=== PATIENT | male | born 1995 | race Caucasian/White ===

== ENCOUNTER 2020-02-04 07:44 | Emergency (ER) | payer MEDICAID, SELFPAY ==
[2020-02-04 07:46] VITALS: BP 139/91; PULSE 108; RESP 15; TEMP 36.6; O2SAT 95; BMI 24.2
--- NOTE | 2020-02-04 07:53 | HMH.EDGENADL ---
ED Disposition Clinical Impression: Polysubstance abuse Drug overdose Qualifiers: Encounter type: initial encounter Injury intent: accidental or unintentional Qualified Code(s): T50.901A - Poisoning by unspecified drugs, medicaments and biological substances, accidental (unintentional), initial encounter Disposition: Home, Self-Care Condition on Discharge: Good Instructions: DI for Drug Overdose in Adults Additional Instructions: You were seen on an emergency basis. It is very important that you follow up with your primary care provider and/or specialist as we discussed within 2 days. All labs and imaging were obtained and interpreted here to rule out life threatening emergencies, but your final results should be reviewed by your primary doctor at your follow up appointment. Please return to the emergency department if any of your symptoms worsen, or if they do not improve as we discussed. Referrals: PCP,No [Primary Care Provider] - - Critical Care Critical Care Time: No Attestation: On , the high probability of a clinically significant, sudden or life threatening deterioration of the following system(s) required my full and direct attention, intervention and personal management. The time I documented below is in addition to time spent performing reported procedures but includes the following listed in this critical care notation. Medical Decision Making - Medical Records Medical records reviewed: Yes: I reviewed the patient's medical records. - Tommie Inquiry Pt receiving controlled substance: No Vital Signs: 02/04/20 07:46 02/04/20 08:28 Temperature 97.9 F Temperature Source Oral Pulse Rate [Right Radial] 108 H 107 H Respiratory Rate 15 Blood Pressure [Right Arm] 139/91 H 137/92 H Blood Pressure Mean [Right Arm] 107 107 Blood Pressure Source [Right Arm] Automatic Cuff Blood Pressure Position [Right Arm] Sitting Supine 02 Sat by Pulse Oximetry 95 96 Oxygen Delivery Method Room Air Room Air - Lab Data Lab results reviewed: Yes: I reviewed the patient's lab results. Orders (Tests/Meds): ED MEDICATIONS Discontinued Medications Generic Name Dose Route Start Last Admin Trade Name Freq PRN Reason Stop Dose Admin Sodium Chloride 1,000 mls @ 999 mls/hr 02/04/20 07:58 02/04/20 08:09 Sod Chlor 0.9% 1000ml Bag IV 02/04/20 08:58 999 mls/hr .Q1H1M ONE Administration Medical Decision Narrative: 24-year-old male presenting after heroin overdose status post Narcan administration and asymptomatic on arrival. Vital signs stable here. Patient was given 1 L of IV normal saline which improved his heart rate and he is no longer tachycardic. He did admit to methamphetamine use as well which explains his high heart rate but he is otherwise still asymptomatic after being observed in the emergency department for >1 hour. glucose within normal limits. Follow-up with PCP. General Adult HPI - General Chief complaint: Overdose Stated complaint: Overdose Time Seen by Provider: 02/04/20 07:53 - History of Present Illness HPI narrative: This is a 24-year-old male with a history of polysubstance abuse presenting via law enforcement after he overdosed on heroin at approximately 5:00 this morning. He was given 4 mg of Narcan prehospital which reversed his symptoms. He was initially found to be unresponsive and immediately became alert, oriented and asymptomatic after administration. On arrival, patient has no fever, chills, nausea, vomiting, cough, shortness of breath, diarrhea, constipation. He is requesting to go home but is willing to stay for observation. - Related Data Allergies Allergy/AdvReac Type Severity Reaction Status Date / Time No Known Allergies Allergy Unverified 05/18/17 14:55 [facility] History - Hepatitis A Screen Attestation statement:: This patient has been screened for Hepatitis A risk factors. I have reviewed the patient's past medical history: Yes LATESHA Tejeda
[2020-02-04 08:28] VITALS: BP 137/92; PULSE 107; O2SAT 96
--- NOTE | 2020-02-04 09:10 | PC.NURSE ---
Pt is using the phone, trying to find a ride home at this time.
--- NOTE | 2020-02-04 09:49 | PC.NURSE ---
Pt drinking a Dr Pepper, still trying to find a ride home at this time.
[2020-02-04 09:56] LABS: POC Glucose,Bedside 81 (70-110)
[2020-02-04 10:53] VITALS: BP 124/85; PULSE 87; RESP 17; TEMP 36.8; O2SAT 95
== END 2020-02-04 10:55 | disposition home or self-care (01) ==
PROVIDERS: Emergency Provider Physician Assistant
DX: T40.1X1A Poisoning by heroin, accidental (unintentional), initial encounter (principal); Y92.019 Unspecified place in single-family (private) house as the place of occurrence of the external cause
CPT/HCPCS: 82962; 96365; 99282